=== PATIENT | male | born 1980 | race Caucasian/White ===

== ENCOUNTER 2018-11-05 07:10 | Day surgery (SDC) | payer BC ==
[2018-11-04 11:45] VITALS: BMI 25.1
--- NOTE | 2018-11-05 17:30 | OP ---
DATE OF PROCEDURE: 11/05/2018 PREPROCEDURE DIAGNOSES: 1. Gastroesophageal reflux disease. This is improved with change to Nexium from Protonix. He is using Nexium p.r.n. b.i.d. He is not interested in antireflux surgery. He has made good behavior modification. Does not have any significant risk factors for reflux. 2. Personal history of polyps and family history of colon cancer in father at age less than 50. POSTPROCEDURE DIAGNOSES: 1. Normal esophagogastroduodenoscopy. 2. Colonoscopy notable for 2 small polyps, 1 in the ascending colon, which had mucus cap and 1 in the sigmoid colon, both less than 7 mm, removed by cold snare polypectomy. RECOMMENDATIONS: 1. Await histopathology. 2. Continue PPI and antireflux regimen. 3. Repeat colonoscopy in 5 years. ANESTHESIA: TIVA. PROCEDURE IN DETAIL: After the patient was informed of the risks, benefits, and possible complications of endoscopy including perforation, reaction to medication, and aspiration, informed consent was obtained. The patient was brought to the endoscopy suite, where he was sedated in a gradual fashion. A bite block was placed inside the orifice. The endoscope was advanced to the esophagus, stomach, and second and third portion of duodenum and slowly removed. The esophagus was normal with no signs of irregular areas at the GE junction. No Orta's. No esophagitis. The stomach was normal in forward and retroflexed views and had normal distensibility. The duodenum was normal at the third portion. The patient was turned to the room and rectal examination was performed. The endoscope was advanced through the anal canal through the colon to the cecum, which was identified by the ileocecal valve and appendiceal orifice. The prep was very good. The scope was then slowly removed. A flat polyp with mucus about 7 mm in size was noted in the ascending colon, removed by cold snare polypectomy and retrieved. Another small polyp 3 mm in size was noted in the sigmoid colon, removed by cold snare polypectomy and retrieved. Retroflexed views in the rectum were normal. The scope was removed. The patient tolerated the procedure well with no complications. Job ID: [id number]
== END 2018-11-05 11:30 | disposition home or self-care (01) ==
LOC: SDC 07:10
PROVIDERS: ATTEND Internal Medicine Gastroenterology
PROC: 0DBK8ZZ Excision of Ascending Colon, Via Natural or Artificial Opening Endoscopic (ICD-10-PCS; principal; 2018-11-05)
PROC: 0DJ08ZZ Inspection of Upper Intestinal Tract, Via Natural or Artificial Opening Endoscopic (ICD-10-PCS; principal; 2018-11-05)
DX: Z12.11 Encounter for screening for malignant neoplasm of colon (principal); D12.2 Benign neoplasm of ascending colon; K21.9 Gastro-esophageal reflux disease without esophagitis; F41.9 Anxiety disorder, unspecified; Z79.899 Other long term (current) drug therapy; Z80.0 Family history of malignant neoplasm of digestive organs; Z86.010 Personal history of colon polyps; Z88.2 Allergy status to sulfonamides
CPT/HCPCS: 88305

== ENCOUNTER 2020-10-18 14:34 | Outpatient (CLI) | payer BC | END 2020-10-18 14:35 | disposition home or self-care (01) | LOC: SCSRAD 14:34 | PROVIDERS: ATTEND Family Medicine | DX: M54.16 Radiculopathy, lumbar region (principal); M89.38 Hypertrophy of bone, other site | CPT/HCPCS: 72100 ==

== ENCOUNTER 2020-10-24 11:48 | Outpatient (CLI) | payer BC ==
[2020-10-24 13:07] LABS: PTT 26.8 sec (22.0-33.0); Prothrombin Time 10.6 sec (9.5-12.1)
== END 2020-10-24 11:49 | disposition home or self-care (01) ==
LOC: LABBT 11:48
PROVIDERS: ATTEND Surgery
DX: Z01.818 Encounter for other preprocedural examination (principal); M51.16 Intervertebral disc disorders with radiculopathy, lumbar region
CPT/HCPCS: 85610; 85730; 93005; 93010

== ENCOUNTER 2021-06-05 08:49 | Day surgery (SDC) | payer BC ==
[2021-06-04 12:59] VITALS: BMI 24.1
[~2021-06-05 08:49] MED LIST: FLU VACC QS2021-22(6MOS UP)/PF 60 MCG/0.5 ML SYRINGE IM ONE
[2021-06-05 09:50] VITALS: BP 133/89; TEMP 98.1
[2021-06-05] MEDS ORDERED: Sodium Bicarbonate 2.5 MEQ/5 ML VIAL ONE (09:51)
== END 2021-06-05 11:40 | disposition home or self-care (01) ==
LOC: CT 08:49
PROVIDERS: ATTEND Orthopaedic Surgery
PROC: 0P9 Upper Bones, Drainage (ICD-10-PCS; principal; 2021-06-05)
DX: M85.621 Other cyst of bone, right upper arm (principal); G89.29 Other chronic pain; M25.511 Pain in right shoulder; Z79.899 Other long term (current) drug therapy; Z88.8 Allergy status to other drugs, medicaments and biological substances
CPT/HCPCS: 77012; 90471; 90686; G0008

== ENCOUNTER 2023-03-04 16:31 | Outpatient (CLI) | payer BC | END 2023-03-04 16:32 | disposition home or self-care (01) | LOC: SCSRAD 16:31 | PROVIDERS: ATTEND Nurse Practitioner Family | DX: M79.645 Pain in left finger(s) (principal) ==

== ENCOUNTER 2025-01-27 08:09 | Outpatient (CLI) | payer BC | END 2025-01-27 08:10 | disposition home or self-care (01) | LOC: SCSMRI 08:09 | PROVIDERS: ATTEND Family Medicine | DX: M51.26 Other intervertebral disc displacement, lumbar region (principal); M51.379 Other intervertebral disc degeneration, lumbosacral region without mention of lumbar back pain or lower extremity pain; M48.061 Spinal stenosis, lumbar region without neurogenic claudication; Z98.890 Other specified postprocedural states | CPT/HCPCS: 72158 ==